=== PATIENT | female | born 2000 | race Caucasian/White ===

== ENCOUNTER 2021-10-09 06:16 | Emergency (ER) | payer OTHER, SELFPAY ==
[2021-10-09 06:21] VITALS: BP 137/76; PULSE 107; RESP 16; TEMP 38.2; O2SAT 99
--- NOTE | 2021-10-09 06:48 | ED.GENADULT ---
HPI - General Adult General Chief complaint: Unspecified Stated complaint: sore throat, difficulty swallowing Time Seen by Provider: 10/09/21 06:38 History of Present Illness HPI narrative: 19-year-old female presents emergency room secondary sore throat. Is been going on for about a week. Is gotten progressively worse. Is worse since last night. Hurts when she tries to swallow. No documented chills or fevers. She got some pressure radiating to her right ear. Related Data Allergies Allergy/AdvReac Type Severity Reaction Status Date / Time No Known Allergies Allergy Verified 10/09/21 06:26 Review of Systems Review of Systems: CONSTITUTIONAL: Denies fever, chills, or sweats. EYES: Denies visual changes, redness, or discharge. ENT: Complaining of a sore throat and pain to swallow. Pain to the right ear. CARDIOVASCULAR: Denies chest pain, palpitations, or edema. RESPIRATORY: Denies cough or dyspnea. GASTROINTESTINAL: Denies abdominal pain, nausea, vomiting, or diarrhea. GENITOURINARY: Denies dysuria or hematuria. SKIN: Denies rash or itching. MUSCULOSKELETAL: Denies back pain, joint pain, or myalgia. NEUROLOGIC: Denies headache, numbness, or weakness. PSYCHIATRIC: Denies anxiety or depression. [facility] Past Medical History Medical History (Updated 10/09/21 @ 06:49 by Chele Pinedo DO) No pertinent past medical history Social History Social History (Updated 10/09/21 @ 06:49 by Chele Pinedo DO) Living arrangements: with family Occupation/Education: student Exam Narrative: APPEARANCE: Well appearing, no pain or distress, well-nourished. Head normocephalic and atraumatic. EYES: PERRLA/EOMI, conjunctivae very clear. NOSE: Normal with no drainage EARS:TMS clear Lilian Boggs, with good light reflex. THROAT: Exudates noted in tonsillar pillars and specifically on the right side. No abscess formation. NECK: Supple. No adenopathy, no masses. RESPIRATORY: Airway patent, respirations nonlabored. Clear to auscultation bilaterally, no rales, rhonchi, wheezing. CARDIOVASCULAR: Regular rate and rhythm without murmurs, rubs, or gallops. ABDOMINAL: Soft, nontender, nondistended, no hepatosplenomegaly Musculoskeletal: Moves all extremities. Strength/ROM intact, No edema, No calf tenderness. NEURO: Alert. Cranial nerves II through XII intact. Normal gait. Good coordination. Nonfocal examination. SKIN:: Warm, dry. Normal Color PSYCHIATRIC: Normal affect/mood, normal interaction Course Vital Signs Vital signs: Vital Signs Temperature 100.7 F H 10/09/21 06:21 Pulse Rate 107 H 10/09/21 06:21 Respiratory Rate 16 10/09/21 06:21 Blood Pressure 137/76 10/09/21 06:21 Pulse Oximetry 99 10/09/21 06:21 Oxygen Delivery Room Air 10/09/21 06:21 Temperature 100.7 F H 10/09/21 06:21 Pulse Rate 107 H 10/09/21 06:21 Respiratory Rate 16 10/09/21 06:21 Blood Pressure 137/76 10/09/21 06:21 Pulse Oximetry 99 10/09/21 06:21 Oxygen Delivery Room Air 10/09/21 06:21 Medical Decision Making MDM Narrative Medical decision making narrative: Patient has exudative tonsillitis. No abscess formation. We will put on a Z-Mohsen. Vital Signs Vital Signs: Vital Signs Temperature 100.7 F H 10/09/21 06:21 Pulse Rate 107 H 10/09/21 06:21 Respiratory Rate 16 10/09/21 06:21 Blood Pressure 137/76 10/09/21 06:21 Pulse Oximetry 99 10/09/21 06:21 Oxygen Delivery Room Air 10/09/21 06:21 Temperature 100.7 F H 10/09/21 06:21 Pulse Rate 107 H 10/09/21 06:21 Respiratory Rate 16 10/09/21 06:21 Blood Pressure 137/76 10/09/21 06:21 Pulse Oximetry 99 10/09/21 06:21 Oxygen Delivery Room Air 10/09/21 06:21 Discharge Plan Discharge Clinical Impression: Exudative tonsillitis Patient Disposition: Home, Self-Care Condition: Stable Instructions: Antibiotic Form, Tonsillitis (ED) Additional Instructions: Increase fluids. Tylenol or Advil as needed. Prescriptio
[2021-10-09 06:56] VITALS: BP 130/67; PULSE 105; RESP 16; O2SAT 98
== END 2021-10-09 07:00 | disposition home or self-care (01) ==
PROVIDERS: Emergency Provider Emergency Medicine; PCP Nurse Practitioner
DX: J02.9 Acute pharyngitis, unspecified (principal)
CPT/HCPCS: 99283